=== PATIENT | female | born 1995 | race Asian ===

== ENCOUNTER 2020-08-08 06:27 | Emergency (ER) | payer OTHER ==
[~2020-08-08] VITALS: Ht 165.1 cm; Wt 81.6 kg
[~2020-08-08 06:27] MED LIST: ACET-8386 PO; CIPR500T4 PO; IBUP-2213 PO; ONDA8TAB87 PO
[2020-08-08 06:36] VITALS: BP 107/61
--- NOTE | 2020-08-08 06:36 | NUR ---
TO BED AMBULATORY
[2020-08-08] MEDS ORDERED: HYDROcodone/APAP 5/325 MG 1 TAB TAB PO ONE (06:45)
--- NOTE | 2020-08-08 06:50 | NUR ---
see complete assessment.
--- NOTE | 2020-08-08 07:11 | NUR ---
Received report from Forrest MITTAL. Patient resting, awaiting results.
[2020-08-08 07:13] LABS: BASOPHILS % (AUTO) 0.1 % (0.0-2.0); EOSINOPHILS % (AUTO) 0.1 % (0.0-4.0); HEMATOCRIT 26.3 % (36-48); HEMOGLOBIN 8.7 g/dL (12.0-16.0); LYMPHOCYTES # (AUTO) 0.8 K/uL (2.5-16.5); MEAN CORPUSCULAR HEMOGLOBIN 32 pg (27-31); MEAN CORPUSCULAR HGB CONC 33 g/dL (33-37); MEAN CORPUSCULAR VOLUME 96.1 fL (80-94); MONOCYTES # (AUTO) 0.5 K/uL (0.8-1.0); MONOCYTES % (AUTO) 5.3 % (1.7-9.3); NEUTROPHILS # (AUTO) 7.8 K/uL (1.8-7.7); PLATELET COUNT (AUTO) 161 K/uL (140-450); RED BLOOD CELL COUNT(AUTO) 2.73 MIL/uL (4.20-5.40); RED CELL DISTRIBUTION WIDTH 19.3 % (11.6-13.7); WHITE BLOOD COUNT (AUTO) 9.2 K/uL (4.8-10.8)
[2020-08-08 07:26] LABS: ANION GAP 14.3 (8-16); CARBON DIOXIDE 24.3 mmol/L (21-32); CREATININE 0.7 mg/dL (0.6-1.3); POTASSIUM 3.6 mmol/L (3.5-5.1); TOTAL BILIRUBIN 2.3 mg/dL (0.0-1.0)
[2020-08-08 07:32] LABS: LYMPHOCYTES % (AUTO) 8.8 % (20.5-51.1); NEUTROPHILS % (AUTO) 85.7 % (42.2-75.2)
[2020-08-08 07:40] LABS: PROTHROMBIN TIME 14.2 secs (10.8-13.4)
[2020-08-08] MEDS ORDERED: NACL 0.9% 1,000 ML IV ONE (07:45)
[2020-08-08] MEDS ORDERED: ONDANSETRON 4 MG/2 ML VIAL IVP ONE (07:45)
[2020-08-08] MEDS ORDERED: fentaNYL citrate 0.05 MG/ML VIAL IVP ONE (07:45)
--- NOTE | 2020-08-08 08:15 | NUR ---
PATIENT RESTING, PLACED IN A POSITION OF COMFORT ON BEDSIDE PEDIATRIC ASSISTANT.
--- NOTE | 2020-08-08 09:17 | NUR ---
Patient ambulated to restroom with steady gait.
--- NOTE | 2020-08-08 09:20 | NUR ---
Patient taken to CT via wheel chair
[2020-08-08 09:30] LABS: APPEARANCE,URINE CLOUDY (CLEAR); BILIRUBIN,URINE 2+ (NEGATIVE); BLOOD, URINE NEGATIVE (NEGATIVE); COLOR,URINE YELLOW (YELLOW); LEUKOCYTE ESTERASE ,URINE NEGATIVE (NEGATIVE); NITRITE, URINE POSITIVE (NEGATIVE); UGLUCOSE NEGATIVE (NEGATIVE)
--- NOTE | 2020-08-08 09:32 | NUR ---
Patient returned from CT
[2020-08-08 09:40] LABS: RBC,URINE NONE SEEN /HPF (0-5); WBC,URINE NONE SEEN /HPF (0-5)
[2020-08-08 09:41] LABS: URINE AMORPHOUS URATE 1+ /HPF (None Seen)
[2020-08-08] MEDS ORDERED: NITR100C7 PO (10:19)
[2020-08-08] MEDS ORDERED: ACET-8386 PO (10:19)
[2020-08-08 10:51] VITALS: BP 95/56
--- NOTE | 2020-08-08 10:52 | NUR ---
dPatient discharged with v/s stable. Written and verbal after care instructions given and explained. Patient alert, oriented and verbalized understanding of instructions. Ambulatory with steady gait. All questions addressed prior to discharge. ID band removed. Patient advised to follow up with PMD. Rx of Macrobid and [place] given. Patient educated on indication of medication including possible reaction and side effects. Opportunity to ask questions provided and answered.
== END 2020-08-08 10:49 | disposition home or self-care (01) ==
LOC: MED 06:27
DX: N39.0 Urinary tract infection, site not specified (principal); M43.6 Torticollis; R51.9 Headache, unspecified; Z79.899 Other long term (current) drug therapy
CPT/HCPCS: 36415; 70450; 70460; 80053; 81001; 81025; 84703; 85025; 85610; 85651; 85730; 96361; 96374; 96375; 99285; J2405; J3010; J7030

== ENCOUNTER 2021-12-08 16:25 | Emergency (ER) | payer OTHER ==
[~2021-12-08] VITALS: Ht 172.7 cm; Wt 83.9 kg
[~2021-12-08 16:25] MED LIST changes: +NITR100C7 PO
[2021-12-08 16:37] VITALS: BP 105/70
[2021-12-08] MEDS ORDERED: ONDANSETRON 4 MG/2 ML VIAL IVP ONE (17:40)
[2021-12-08] MEDS ORDERED: MORPHINE SULFATE 4 MG/ML SYR IVP ONE (17:40)
[2021-12-08] MEDS ORDERED: NACL 0.9% 1,000 ML IV ONE (17:40)
[2021-12-08 18:01] LABS: BASOPHILS % (AUTO) 0.1 % (0.0-2.0); EOSINOPHILS % (AUTO) 0.1 % (0.0-4.0); HEMATOCRIT 36.3 % (36-48); HEMOGLOBIN 12.1 g/dL (12.0-16.0); LYMPHOCYTES # (AUTO) 0.7 K/uL (2.5-16.5); LYMPHOCYTES % (AUTO) 6.3 % (20.5-51.1); MEAN CORPUSCULAR HEMOGLOBIN 30 pg (27-31); MEAN CORPUSCULAR HGB CONC 33 g/dL (33-37); MEAN CORPUSCULAR VOLUME 90.3 fL (80-94); MONOCYTES # (AUTO) 0.5 K/uL (0.8-1.0); MONOCYTES % (AUTO) 3.9 % (1.7-9.3); NEUTROPHILS # (AUTO) 10.3 K/uL (1.8-7.7); NEUTROPHILS % (AUTO) 89.6 % (42.2-75.2); PLATELET COUNT (AUTO) 254 K/uL (140-450); RED BLOOD CELL COUNT(AUTO) 4.02 MIL/uL (4.20-5.40); RED CELL DISTRIBUTION WIDTH 14.9 % (11.6-13.7); WHITE BLOOD COUNT (AUTO) 11.5 K/uL (4.8-10.8)
[2021-12-08 18:24] LABS: ALBUMIN 4.3 g/dL (3.4-5.0); ANION GAP 15.2 (8-16); CARBON DIOXIDE 26.3 mmol/L (21-32); CREATININE 0.6 mg/dL (0.6-1.3); POTASSIUM 3.5 mmol/L (3.5-5.1); TOTAL BILIRUBIN 3.7 mg/dL (0.0-1.0)
--- NOTE | 2021-12-08 18:37 | NUR ---
PT AMBULATED TO ER BED 1
--- NOTE | 2021-12-08 19:15 | NUR ---
REPORT GIVEN BY ALON MITTAL, ASSUME CARE OF PT I BED 1 BY CHARLES MITTAL, PT C/O BODY ACHES,HEADACHE, ABD PAIN. PT GIVEN MORPHINE AND FEELS BETTER, C/O 6/10 HEADACHE. HX- HEMOLYTIC ANEMIA, PT ON MONITOR
--- NOTE | 2021-12-08 19:15 | NUR ---
Pt report given to Camille. Transfer of care at this time.
--- NOTE | 2021-12-08 20:47 | NUR ---
COVID AND FLU SWAB SENT, US AT BEDSIDE.
[2021-12-08] MEDS ORDERED: KETOROLAC 15 MG/ML VIAL IVP ONE (21:40)
--- NOTE | 2021-12-08 22:00 | NUR ---
PT LAYING IN BED , NO DISTRESS OBSERVED.
--- NOTE | 2021-12-09 00:08 | NUR ---
Patient discharged with v/s stable. Written and verbal after care instructions given and explained. Patient verbalized understanding. Ambulatory with steady gait. All questions addressed prior to discharge. Advised to follow up with PMD.
[2021-12-09 00:09] VITALS: BP 121/67
[2021-12-14] MEDS ORDERED: ACET-9525 PO (11:17)
== END 2021-12-09 00:08 | disposition home or self-care (01) ==
LOC: MED 16:25
DX: R10.9 Unspecified abdominal pain (principal); Z20.822 Contact with and (suspected) exposure to COVID-19; R11.2 Nausea with vomiting, unspecified; D72.829 Elevated white blood cell count, unspecified; E80.7 Disorder of bilirubin metabolism, unspecified; R74.01 Elevation of levels of liver transaminase levels; R77.9 Abnormality of plasma protein, unspecified; K80.20 Calculus of gallbladder without cholecystitis without obstruction; D58.9 Hereditary hemolytic anemia, unspecified; Z79.899 Other long term (current) drug therapy
CPT/HCPCS: 36415; 74176; 76705; 80053; 81002; 81025; 83690; 85025; 87426; 87804; 93005; 96361; 96374; 96375; 99285; J1885; J2270; J2405; J7030; Q0092